=== PATIENT | male | born 1985 | race American Indian/Alaskan Native ===

== ENCOUNTER 2019-03-04 10:01 | Emergency (ER) | payer SELFPAY ==
[2019-03-04 10:08] VITALS: BP 140/95
--- NOTE | 2019-03-04 11:11 | Emergency Department Report ---
HPI - General Chief Complaint: Upper Respiratory Infection Time Seen by Provider: 03/04/19 11:03 - HPI HPI: 33-year-old [place] male presents to the emergency department with complaint of a 2-3 day history of a productive sounding cough, chest congestion, and now some chest wall soreness secondary to the coughing. He also says that he developed a sore throat starting upon waking this morning. No fever. He's been trying Mucinex extra strength for his symptoms without any relief. No past medical history. He has a tobacco smoker but denies any illicit drug use. His primary care physician is Dr. Sourav Aquino but was unable to get in to see them. ED Past Medical Hx - Past Medical History Previous Medical History?: No - Surgical History Past Surgical History?: No - Social History Smoking Status: Current Every Day Smoker Substance Use Type: Marijuana - Medications Home Medications: Home Medications Medication Instructions Recorded Confirmed Last Taken Type ALBUTEROL Inhaler (OR & NICU) 2 puff IH QID PRN #1 inh 03/04/19 Unknown Rx [ProAir HFA Inhaler] Benzonatate [Tessalon Perles] 100 mg PO Q8HR PRN #20 capsule 03/04/19 Unknown Rx ED Review of Systems ROS: Stated complaint: CHEST PAIN/BAD COLD Other details as noted in HPI Comment: All other systems reviewed and negative Constitutional: denies: chills, fever Eyes: denies: eye pain, vision change ENT: throat pain. denies: ear pain Respiratory: cough, wheezing Cardiovascular: chest pain (chest wall pain). denies: palpitations, edema Gastrointestinal: denies: abdominal pain, vomiting Musculoskeletal: denies: back pain, joint swelling Neurological: denies: headache, weakness Physical Exam - Physical Exam Vital Signs: Vital Signs 03/04/19 10:07 Temperature 98.7 F Pulse Rate 88 Respiratory 20 Rate Blood Pressure 140/95 O2 Sat by Pulse 96 Oximetry Physical Exam: GENERAL: The patient is well-developed well-nourished. HENT: Normocephalic. Atraumatic. Patient has moist mucous membranes. Mild tonsillar hypertrophy and erythema but no exudates. No drooling or trismus. EYES: Extraocular motions are intact. NECK: Supple. Trachea is midline. CHEST/LUNGS: Mild expiratory wheezing. No tachypnea or accessory muscle use. No cough heard during examination. There is no respiratory distress noted. HEART/CARDIOVASCULAR: Regular. There is no tachycardia. There is no murmur. ABDOMEN: Abdomen is soft, nontender. Patient has normal bowel sounds. There is no abdominal distention. SKIN: Skin is warm and dry. NEURO: The patient is awake, alert, and oriented. The patient is cooperative. The patient has no focal neurologic deficits. The patient has normal speech. MUSCULOSKELETAL: There is no tenderness or deformity. There is no evidence of acute injury. ED Course Vital Signs 03/04/19 10:07 Temperature 98.7 F Pulse Rate 88 Respiratory 20 Rate Blood Pressure 140/95 O2 Sat by Pulse 96 Oximetry ED Medical Decision Making - Radiology Data Radiology results: image reviewed interpreted by me: Chest x-ray does not show any acute process. There are no pleural effusions, obvious pneumonia and there is no pneumothorax. - Medical Decision Making Patient has a 2 to three-day history of some mixed dry and productive cough and now recently a sore throat. Chest x-ray did not show any pneumonia, pleural effusions, or any other acute process. Negative for rapid strep test. Vital signs stable including being afebrile. Patient appears to be consistent with a viral upper respiratory infection. He has been given a prescription for an albuterol inhaler, Tessalon Perles and has been given a dose of Decadron prior to discharge. He will follow up with primary care and will return to the ER with any worsening of the symptoms or any acute distress. - Differential Diagnosis viral URI, asthma, bronchitis, pneumonia Critical Care Time: No Critical care attestation.: If time is entered above; I have spent that time in minutes in the direct care of this critically ill patient, excluding procedure time. ED Disposition Clinical Impression: Pharyngitis Qualifiers: Pharyngitis/tonsillitis etiology: unspecified etiology Qualified Code(s): J02.9 - Acute pharyngitis, unspecified Upper respiratory infection Qualifiers: URI type: unspecified viral URI Qualified Code(s): J06.9 - Acute upper respiratory infection, unspecified Disposition: DC-01 TO HOME OR SELFCARE Is pt being admited?: No Condition: Stable Instructions: How to Stop Smoking (ED), Pharyngitis (ED), Upper Respiratory Infection (ED) Additional Instructions: Please follow up with a primary care physician in the next few days. Return to the emergency Department with any worsening of your symptoms or any acute distress. Prescriptions: ALBUTEROL Inhaler (OR & NICU) [ProAir HFA Inhaler] 2 puff IH QID PRN #1 inh PRN Reason: Shortness Of Breath Benzonatate [Tessalon Perles] 100 mg PO Q8HR PRN #20 capsule PRN Reason: Cough Referrals: SOURAV FRIED MD [Staff Physician] - 2-3 Days Forms: Work/School Release Form(ED) Time of Disposition: 12:01
--- NOTE | 2019-03-04 11:34 | XRay Report ---
CHEST 2 VIEWS INDICATION: cough. COMPARISON: None. FINDINGS: Support devices: None. Heart: Within normal limits. Pulmonary vasculature: Normal. Lungs/pleura: No acute air space or interstitial disease. No pneumothorax. Additional findings: None. IMPRESSION: Normal chest. Signer Name: Adria Smith MD Signed: 03/04/2019 11:30 AM Workstation Name: [id number]
[2019-03-04] MEDS ORDERED: DEXAMETHASONE 4 MG TAB PO ONE (12:00)
== END 2019-03-04 12:26 | disposition home or self-care (01) ==
LOC: ED 10:01
DX: J06.9 Acute upper respiratory infection, unspecified (principal); F17.200 Nicotine dependence, unspecified, uncomplicated; F12.10 Cannabis abuse, uncomplicated; Z79.899 Other long term (current) drug therapy
CPT/HCPCS: 71046; 87116; 87430; 99284; J8540

== ENCOUNTER 2019-12-15 02:25 | Emergency (ER) | payer SELFPAY ==
[2019-12-15 03:06] VITALS: BP 148/105
== END 2019-12-15 07:45 | disposition left against medical advice (07) ==
LOC: ED 02:25
DX: I10 Essential (primary) hypertension (principal); Z53.21 Procedure and treatment not carried out due to patient leaving prior to being seen by health care provider

== ENCOUNTER 2021-02-05 01:52 | Emergency (ER) | payer SELFPAY ==
[2021-02-05] MEDS ORDERED: AMOXICILLIN/K CLAV 875/125MG TAB PO ONE (02:22)
[2021-02-05] MEDS ORDERED: oxyCODONE /ACETAMINOPHEN 5-325MG TAB PO ONE (02:22)
[2021-02-05] MEDS ORDERED: ONDANSETRON 4 MG ODT TAB PO ONE (02:22)
--- NOTE | 2021-02-05 02:43 | Emergency Department Report ---
ED General Adult HPI - General Chief complaint: Dental/Oral Stated complaint: TOOTHACHE Source: patient Mode of arrival: Ambulatory Limitations: No Limitations - History of Present Illness Initial comments: Patient is a 35-year-old -Italian male with no past medical history who presents to the ED with complaint of acute onset persistent severe right mandibular premolar molar toothache with swollen gums for the last 8 hours. Patient states that he has not been able to sleep because of persistently worsening pain with elevated blood pressure. Patient states that he took ibuprofen 800 mg and an old amoxicillin capsule about 4 hours ago but no relief in pain. Patient denies headache, dizziness, syncope, chest pain, shortness of breath, nausea and vomiting, fever, chills, cough, sore throat, traumatic injury, change in vision, numbness and tingling weakness of upper or lower extremities bilaterally. MD Complaint: Right mandibular gingiva swelling and pain; right mandibular premolar and m -: Sudden, hour(s) (8) Location: mouth Radiation: non-radiation Severity scale (0 -10): 10 Quality: aching, sharp Consistency: constant Improves with: none Worsens with: eating Associated Symptoms: denies other symptoms. denies: confusion, chest pain, cough, headaches, loss of appetite, malaise, rash, shortness of breath, syncope, weakness Treatments Prior to Arrival: NSAID - Related Data Previous Rx's Medication Instructions Recorded Last Taken Type Albuterol Mdi (or & Nicu Only) 2 puff IH QID PRN #1 inh 03/04/19 Unknown Rx [ProAir HFA Inhaler] Benzonatate [Tessalon Perles] 100 mg PO Q8HR PRN #20 capsule 03/04/19 Unknown Rx Clindamycin [Clindamycin CAP] 300 mg PO Q8H #30 cap 02/05/21 Unknown Rx Ketorolac [Toradol] 10 mg PO Q8H PRN #20 tablet 02/05/21 Unknown Rx traMADoL [Ultram] 50 mg PO Q6HR PRN #12 tablet 02/05/21 Unknown Rx Allergies Allergy/AdvReac Type Severity Reaction Status Date / Time No Known Allergies Allergy Verified 02/05/21 01:56 ED Review of Systems ROS: Stated complaint: TOOTHACHE Other details as noted in HPI Constitutional: denies: chills, fever Eyes: denies: eye pain, eye discharge, vision change ENT: dental pain (Severe pain on right premolar and molar teeth; swollen severely painful right mandibular gingiva). denies: ear pain, throat pain Respiratory: denies: cough, shortness of breath, wheezing Cardiovascular: denies: chest pain, palpitations Endocrine: no symptoms reported Gastrointestinal: denies: abdominal pain, nausea, diarrhea Genitourinary: denies: urgency, dysuria Musculoskeletal: denies: back pain, joint swelling, arthralgia Skin: denies: rash, lesions Neurological: denies: headache, weakness, paresthesias Psychiatric: denies: anxiety, depression Hematological/Lymphatic: denies: easy bleeding, easy bruising ED Past Medical Hx - Past Medical History Previous Medical History?: No Additional medical history: Vertigo - Surgical History Past Surgical History?: No - Social History Smoking Status: Current Every Day Smoker Substance Use Type: Marijuana - Medications Home Medications: Home Medications Medication Instructions Recorded Confirmed Last Taken Type Albuterol Mdi (or & Nicu Only) 2 puff IH QID PRN #1 inh 03/04/19 Unknown Rx [ProAir HFA Inhaler] Benzonatate [Tessalon Perles] 100 mg PO Q8HR PRN #20 capsule 03/04/19 Unknown Rx Clindamycin [Clindamycin CAP] 300 mg PO Q8H #30 cap 02/05/21 Unknown Rx Ketorolac [Toradol] 10 mg PO Q8H PRN #20 tablet 02/05/21 Unknown Rx traMADoL [Ultram] 50 mg PO Q6HR PRN #12 tablet 02/05/21 Unknown Rx ED Physical Exam - General Limitations: No Limitations General appearance: alert, in no apparent distress - Head Head exam: Present: atraumatic, normocephalic, normal inspection - Eye Eye exam: Present: normal appearance, PERRL, EOMI Pupils: Present: normal accommodation - ENT ENT exam: Present: mucous membranes moist, TM's normal bilaterally, normal external ear exam, other (Swelling, severely tender right mandibular gingiva; severely tender right mandibular premolar and molar teeth) - Neck Neck exam: Present: normal inspection, full ROM - Respiratory Respiratory exam: Present: normal lung sounds bilaterally. Absent: respiratory distress, wheezes, rales, rhonchi, chest wall tenderness, accessory muscle use, decreased breath sounds - Cardiovascular Cardiovascular Exam: Present: regular rate, normal rhythm, normal heart sounds. Absent: systolic murmur, diastolic murmur, rubs, gallop - GI/Abdominal GI/Abdominal exam: Present: soft, normal bowel sounds. Absent: tenderness, guarding, rebound, hyperactive bowel sounds, hypoactive bowel sounds, organomeg seema - Extremities Exam Extremities exam: Present: normal inspection, full ROM, normal capillary refill - Back Exam Back exam: Present: normal inspection, full ROM. Absent: tenderness, CVA tenderness (R), CVA tenderness (L), muscle spasm, paraspinal tenderness, vertebral tenderness - Neurological Exam Neurological exam: Present: alert, oriented X3, CN II-XII intact, normal gait, reflexes normal - Psychiatric Psychiatric exam: Present: normal affect, normal mood - Skin Skin exam: Present: warm, dry, intact, normal color. Absent: rash ED Course Vital Signs 02/05/21 01:54 Temperature 99.1 F Pulse Rate 87 Respiratory 18 Rate Blood Pressure 163/109 [Right] O2 Sat by Pulse 97 Oximetry ED Medical Decision Making - Medical Decision Making This is a 35-year-old -Italian male with no past medical history who presents to the ED with complaint of acute onset persistent severe right mandibular premolar molar toothache with swollen gums for the last 8 hours. Patient states that he has not been able to sleep because of persistently worsening pain with elevated blood pressure. Patient states that he took ibuprofen 800 mg and an old amoxicillin capsule about 4 hours ago but no relief in pain. In the ED, patient is alert and oriented x3 and is not in any distress but appears to be in significant pain. Patient was treated for pain in the ED and was given initial oral antibiotics. On reevaluation, patient's pain is well controlled medication. Patient will discharge home on pain medications and antibiotics and advised to follow-up with his dentist in 7 to 10 days for reevaluation or return to the ED immediately if symptoms get worse - Differential Diagnosis Dental abscess; gingivitis; dental caries Critical care attestation.: If time is entered above; I have spent that time in minutes in the direct care of this critically ill patient, excluding procedure time. ED Disposition Clinical Impression: Dental abscess, Dental caries, Acute gingivitis Disposition: HOME / SELF CARE / HOMELESS Is pt being admited?: No Does the pt Need Aspirin: No Condition: Stable Instructions: Dental Abscess, [id number], Trench Mouth Additional Instructions: Take medication with food, drink plenty of fluids and follow-up with your primary care physician or dentist in 7 to 10 days for reevaluation. Return to the ED immediately if your symptoms get worse Prescriptions: Clindamycin [Clindamycin CAP] 300 mg PO Q8H #30 cap Ketorolac [Toradol] 10 mg PO Q8H PRN #20 tablet PRN Reason: Pain traMADoL [Ultram] 50 mg PO Q6HR PRN #12 tablet PRN Reason: Pain Referrals: [facility] [Outside] - 7-10 days Time of Disposition: 02:42 Print Language: GREEK
[2021-02-05 04:01] VITALS: BP 132/88
== END 2021-02-05 03:21 | disposition home or self-care (01) ==
LOC: ED 01:52
DX: K04.7 Periapical abscess without sinus (principal); K02.9 Dental caries, unspecified; K05.10 Chronic gingivitis, plaque induced; F17.200 Nicotine dependence, unspecified, uncomplicated; F12.10 Cannabis abuse, uncomplicated
CPT/HCPCS: 99282; J3490; Q0162